=== PATIENT | male | born 1940 | race Hispanic/Latino ===

== ENCOUNTER 2020-06-02 21:39 | Emergency (ER) | payer MEDICARE ==
[~2020-06-02] VITALS: Ht 180.3 cm; Wt 96.6 kg
[~2020-06-02 21:39] MED LIST: DOXYCYCLINE HY100 MG PO; GLIMEPIRIDE2 MG PO; LISINOPRIL2.5 MG PO; PRAVASTATIN SOD20 MG PO; PRAVASTATIN SOD40 MG PO; TRIAMTERENE-HCTZ1 EA PO
[2020-06-02] MEDS ORDERED: IBUPROFEN 600 MG TAB PO STA (21:57)
[2020-06-02] MEDS ORDERED: CEFTRIAXONE SOD 1 GM/50 ML BAG IV ONE (22:00)
[2020-06-02] MEDS ORDERED: SODIUM CHLORIDE 0.9% 1000ML 1,000 ML IV ONE (22:00)
[2020-06-02] MEDS ORDERED: CEFTRIAXONE SOD 1 GM in SODIUM CHLORIDE 0.9% 50ML 50 ML IV ONE (22:15)
[2020-06-02 22:21] LABS: BASOPHILS % 0.2 % (0.0-1.0); HEMATOCRIT 46.4 % (38.2-49.6); HEMOGLOBIN 15.9 g/dL (14.0-18.0); LYMPHOCYTES # (AUTO) 0.8 (1.0-3.2); LYMPHOCYTES % 13.2 % (18.0-39.1); MEAN CORPUSCULAR HEMOGLOBIN 29.4 pg (28-32); MEAN CORPUSCULAR HGB CONC 34.3 g/dL (31-35); MEAN CORPUSCULAR VOLUME 85.9 fL (81-99); MONOCYTES # (AUTO) 0.3 (0.2-0.8); MONOCYTES % 4.9 % (4.4-11.3); NEUTROPHILS # (AUTO) 4.8 (2.1-6.9); NEUTROPHILS % 81.4 % (38.7-80.0); PLATELET COUNT 158 x10e3/uL (140-360)
[2020-06-02 22:38] LABS: ALBUMIN 2.7 g/dL (3.5-5.0); ALBUMIN/GLOBULIN RATIO 0.6 (0.8-2.0); CREATININE, SERUM 1.9 mg/dL (0.72-1.25)
[2020-06-02 22:45] LABS: CREATINE KINASE MB 1.3 ng/mL (0-5.0)
== END 2020-06-03 01:36 | disposition home or self-care (01) ==
LOC: ER 21:45
DX: U07.1 COVID-19 (principal); R50.9 Fever, unspecified; R05 Cough; E11.65 Type 2 diabetes mellitus with hyperglycemia
CPT/HCPCS: 36415; 71045; 80053; 82550; 82553; 83605; 84484; 85025; 87040; 93005; 99284; J0696; J7030; U0002

== ENCOUNTER 2021-11-18 15:50 | Emergency (ER) | payer MEDICARE, OTHER ==
[~2021-11-18] VITALS: Ht 180.3 cm; Wt 96.6 kg
[2021-11-18 16:39] LABS: BASOPHILS % 0.2 % (0.0-1.0); EOSINOPHILS % 0.1 % (0.0-6.0); HEMATOCRIT 46.8 % (38.2-49.6); HEMOGLOBIN 15.5 g/dL (14.0-18.0); LYMPHOCYTES # (AUTO) 0.8 (1.0-3.2); LYMPHOCYTES % 6.3 % (18.0-39.1); MEAN CORPUSCULAR HEMOGLOBIN 29.9 pg (28-32); MEAN CORPUSCULAR HGB CONC 33.1 g/dL (31-35); MEAN CORPUSCULAR VOLUME 90.3 fL (81-99); MONOCYTES # (AUTO) 0.8 (0.2-0.8); MONOCYTES % 6.9 % (4.4-11.3); NEUTROPHILS # (AUTO) 10.4 (2.1-6.9); NEUTROPHILS % 86.2 % (38.7-80.0); PLATELET COUNT 205 x10e3/uL (140-360); RED BLOOD COUNT 5.18 x10e6/uL (4.3-5.7); RED CELL DISTRIBUTION WIDTH 14.5 % (11.7-14.4)
[2021-11-18 17:00] LABS: ALBUMIN 3.1 g/dL (3.5-5.0); ALBUMIN/GLOBULIN RATIO 0.6 (0.8-2.0); ANION GAP 20.4 mmol/L (8-16); CALCIUM 8.7 mg/dL (8.4-10.2); CREATININE, SERUM 1.35 mg/dL (0.72-1.25); POTASSIUM 3.4 mmol/L (3.5-5.1)
[2021-11-18 17:07] LABS: CREATINE KINASE MB 2.2 ng/mL (0-5.0)
[2021-11-18 18:42] LABS: CLARITY,URINE SL CLOUDY (CLEAR); COLOR,URINE YELLOW (YELLOW); LEUKOCYTE ESTERASE ,URINE NEGATIVE (NEGATIVE); NITRITE,URINE NEGATIVE (NEGATIVE); PROTEIN,URINE DIPSTICK >=300 (NEGATIVE)
[2021-11-18 18:43] LABS: KETONES,URINE TRACE (NEGATIVE); URINE UROBILINOGEN 0.2 mg/dL (0.2 - 1)
[2021-11-18 18:45] LABS: WBC,URINE (MAN) 0-5 /HPF (0-5)
[2021-11-18 18:46] LABS: AMORPHOUS SEDIMENT,URINE FEW (FEW); BACTERIA,URINE FEW /HPF; EPITHELIAL CELLS,URINE RARE /LPF
[2021-11-18] MEDS ORDERED: BACTRIM DS TAB1 EACH PO (19:44)
[2021-11-18] MEDS ORDERED: PAXLOVID 150-11 EACH PO (19:44)
[2021-11-18 20:23] VITALS: BP 119/72
== END 2021-11-18 20:26 | disposition home or self-care (01) ==
LOC: ER 15:56
DX: S80.01XA Contusion of right knee, initial encounter (principal); W01.0XXA Fall on same level from slipping, tripping and stumbling without subsequent striking against object, initial encounter; Y93.01 Activity, walking, marching and hiking; Y92.89 Other specified places as the place of occurrence of the external cause; U07.1 COVID-19; E11.649 Type 2 diabetes mellitus with hypoglycemia without coma; E78.5 Hyperlipidemia, unspecified; R94.31 Abnormal electrocardiogram [ECG] [EKG]; Z96.653 Presence of artificial knee joint, bilateral
CPT/HCPCS: 36415; 71045; 73502; 73562; 73700; 80053; 81001; 82550; 82553; 83605; 84484; 85025; 87040; 87086; 93005; 99284; U0002

== ENCOUNTER 2024-08-21 15:19 | Inpatient (IN) | payer MEDICARE ==
[~2024-08-21] VITALS: Ht 165.1 cm; Wt 81.6 kg
[~2024-08-21 15:19] MED LIST changes: +BACTRIM DS TAB1 EACH PO; +PAXLOVID 150-11 EACH PO
[2024-08-21 15:45] VITALS: TEMP 99.1
[2024-08-21 15:54] LABS: BASOPHILS % 0.4 % (0.0-1.0); EOSINOPHILS % 0.3 % (0.0-6.0); HEMOGLOBIN 9.5 g/dL (14.0-18.0); LYMPHOCYTES # (AUTO) 1.4 (1.0-3.2); LYMPHOCYTES % 14.2 % (18.0-39.1); MEAN CORPUSCULAR HEMOGLOBIN 24.7 pg (28-32); MEAN CORPUSCULAR HGB CONC 30.6 g/dL (31-35); MEAN CORPUSCULAR VOLUME 80.7 fL (81-99); MONOCYTES # (AUTO) 0.5 (0.2-0.8); MONOCYTES % 5.3 % (4.4-11.3); NEUTROPHILS # (AUTO) 7.6 (2.1-6.9); NEUTROPHILS % 79.4 % (38.7-80.0); PLATELET COUNT 372 x10e3/uL (140-360); RED BLOOD COUNT 3.84 x10e6/uL (4.3-5.7); RED CELL DISTRIBUTION WIDTH 15.9 % (11.7-14.4); WHITE BLOOD COUNT 9.57 x10e3/uL (4.8-10.8)
[2024-08-21] MEDS: SODIUM CHLORIDE 0.9% 1000ML 1,000 ML IV STA (16:05)
[2024-08-21 16:19] LABS: ALBUMIN 2.6 g/dL (3.5-5.0); ALBUMIN/GLOBULIN RATIO 0.6 (0.8-2.0); ALKALINE PHOSPHATASE 89 IU/L (40-150); ANION GAP 14.8 mmol/L (8-16); BILIRUBIN,TOTAL 0.2 mg/dL (0.2-1.2); BLOOD UREA NITROGEN 24 mg/dL (7-26); BUN/CREATININE RATIO 15 (6-25); CALCIUM 8.3 mg/dL (8.4-10.2); CARBON DIOXIDE 21 mmol/L (22-29); CHLORIDE 103 mmol/L (98-107); CREATININE, SERUM 1.58 mg/dL (0.72-1.25); EST GLOMERULAR FILTRATION RATE 43 ML/MIN (>=60); GLUCOSE 226 mg/dL (74-118); POTASSIUM 3.8 mmol/L (3.5-5.1); SODIUM 135 mmol/L (136-145); TOTAL PROTEIN 6.9 g/dL (6.5-8.1)
[2024-08-21 16:20] LABS: ALANINE AMINOTRANSFERASE < 6 IU/L (0-55)
[2024-08-21 18:29] VITALS: PULSE 89; RESP 12
[2024-08-21] MEDS ORDERED: DEXTROSE 50% SYRINGE 50 ML IV PRN (18:45)
[2024-08-21] MEDS: SODIUM CHLORIDE 0.9% 1000ML 1,000 ML IV SCH (19:03)
[2024-08-21 20:00] VITALS: BP 132/85; PULSE 90; RESP 18; TEMP 98; O2SAT 100
[2024-08-21 20:30] VITALS: BP 132/85; PULSE 90; RESP 18; TEMP 98; O2SAT 100
[2024-08-21] MEDS: INSULIN REGULAR, HUMAN 100 UNIT/1 ML SQ SCH (21:00)
[2024-08-21] MEDS ORDERED: LISINOPRIL5 MG PO (23:13)
[2024-08-21] MEDS ORDERED: TRIJARDY XR 5-1 EACH (23:13)
[2024-08-22] VITALS (9 sets, daily range): BP systolic 119–176; BP diastolic 77–97; PULSE 74–110; RESP 18–20; TEMP 96.4–97.6; O2SAT 97–100
[2024-08-22 05:26] LABS: HEMOGLOBIN 9.7 g/dL (14.0-18.0)
[2024-08-22 05:44] LABS: % IRON SATURATION 10 % (15-50); IRON 25 ug/dL (65-175); TOTAL IRON BINDING CAPACITY 258 ug/dL (261-478); TRANSFERRIN 184 mg/dL (174-364)
[2024-08-22 06:55] LABS: CDIFF AG QUIK CHEK NEGATIVE (NEGATIVE); CDIFF TOX QUIK CHEK NEGATIVE (NEGATIVE)
[2024-08-22] MEDS ORDERED: DOCUSATE SODIUM 100 MG CAP PO PRN (13:45)
[2024-08-22] MEDS ORDERED: HYDRALAZINE HCL 20 MG/ML VIAL IV PRN (13:45)
[2024-08-22] MEDS ORDERED: DEXTROSE 50% SYRINGE 50 ML IV PRN (13:45)
[2024-08-22] MEDS ORDERED: SIMETHICONE 80 MG CHEW PO PRN (13:45)
[2024-08-22] MEDS ORDERED: LIDOCAINE 4% PATCH TP PRN (13:45)
[2024-08-22] MEDS ORDERED: DIPHENHYDRAMINE HCL 25 MG CAP PO PRN (13:45)
[2024-08-22] MEDS ORDERED: ALBUTEROL/IPRATROPIUM 3 ML NEB NEB PRN (13:45)
[2024-08-22] MEDS ORDERED: ONDANSETRON HCL INJ 2MG/ML 2ML 2 MG/ML VIAL IV PRN (13:45)
[2024-08-22] MEDS ORDERED: BENZONATATE 100 MG CAP PO PRN (13:45)
[2024-08-22] MEDS ORDERED: POTASSIUM CHLORIDE 20 MEQ TAB CR PO PRN (13:45)
[2024-08-22] MEDS ORDERED: CIPROFLOXACIN 400 MG/D5W 200ML 200 ML IV SCH (14:00)
[2024-08-22] MEDS: METRONIDAZOLE 500MG/NS 100ML 100 ML IV SCH (15:07)
[2024-08-22] MEDS: IRON SUCROSE 100 MG in SODIUM CHLORIDE 0.9% 100 ML IV SCH (15:08)
[2024-08-22] MEDS: LISINOPRIL 10 MG TAB PO SCH (15:08)
[2024-08-22 15:21] LABS: HEMATOCRIT 37.7 % (38.2-49.6); HEMOGLOBIN 11.2 g/dL (14.0-18.0)
[2024-08-22] MEDS ORDERED: CLONIDINE HCL 0.1 MG TAB PO PRN (16:15)
[2024-08-22] MEDS: INSULIN LISPRO 100 UNIT/1 ML 3ML VIAL SQ SCH (16:48)
[2024-08-22] MEDS: ENOXAPARIN SOD INJ 40 MG/0.4 ML SYR SC SCH (16:48)
[2024-08-22] MEDS: CIPROFLOXACIN 400 MG/D5W 200ML 200 ML IV SCH (16:49)
[2024-08-22] MEDS: DEXTROSE 50% SYRINGE 50 ML IV PRN (20:10)
[2024-08-22] MEDS ORDERED: MELATONIN 5 MG TABLET PO PRN (21:00)
[2024-08-22] MEDS: CYANOCOBALAMIN INJ 1,000 MCG/ML VIAL IM STA (23:45)
[2024-08-23] VITALS (8 sets, daily range): BP systolic 118–152; BP diastolic 62–79; PULSE 64–102; RESP 12–22; TEMP 97.7–98.1; O2SAT 92–98
[2024-08-23 05:41] LABS: BASOPHILS % 0.3 % (0.0-1.0); EOSINOPHILS % 0.5 % (0.0-6.0); HEMATOCRIT 33.1 % (38.2-49.6); HEMOGLOBIN 9.7 g/dL (14.0-18.0); LYMPHOCYTES # (AUTO) 1.3 (1.0-3.2); LYMPHOCYTES % 16.7 % (18.0-39.1); MEAN CORPUSCULAR HEMOGLOBIN 24.6 pg (28-32); MEAN CORPUSCULAR HGB CONC 29.3 g/dL (31-35); MEAN CORPUSCULAR VOLUME 83.8 fL (81-99); MONOCYTES # (AUTO) 0.4 (0.2-0.8); MONOCYTES % 5.9 % (4.4-11.3); NEUTROPHILS # (AUTO) 5.7 (2.1-6.9); NEUTROPHILS % 76.3 % (38.7-80.0); PLATELET COUNT 206 x10e3/uL (140-360); RED BLOOD COUNT 3.95 x10e6/uL (4.3-5.7)
[2024-08-23 06:17] LABS: ANION GAP 17.3 mmol/L (8-16); CALCIUM 7.9 mg/dL (8.4-10.2); CREATININE, SERUM 1.07 mg/dL (0.72-1.25); MAGNESIUM 1.8 MG/DL (1.3-2.1); PHOSPHORUS 3.1 MG/DL (2.3-4.7)
[2024-08-23 06:19] LABS: POTASSIUM 3.3 mmol/L (3.5-5.1)
[2024-08-23] MEDS: CYANOCOBALAMIN INJ 1,000 MCG/ML VIAL IM SCH (08:45)
[2024-08-23] MEDS: PEG (High)/E-LYTE SOLN 4,000 ML BTL PO ONE (11:02)
[2024-08-23 11:08] LABS: BILIRUBIN,URINE NEGATIVE (NEGATIVE); CLARITY,URINE CLEAR (CLEAR); COLOR,URINE YELLOW (YELLOW); GLUCOSE, URINE 500 (NEGATIVE); KETONES,URINE NEGATIVE (NEGATIVE); LEUKOCYTE ESTERASE ,URINE TRACE (NEGATIVE); NITRITE,URINE NEGATIVE (NEGATIVE); PH,URINE 5.5 (5 - 7); PROTEIN,URINE DIPSTICK 2+ (NEGATIVE); URINE UROBILINOGEN 0.2 mg/dL (0.2 - 1)
[2024-08-23 11:17] LABS: BACTERIA,URINE FEW /HPF; EPITHELIAL CELLS,URINE FEW /LPF; RBC,URINE 0-5 /HPF (0-5)
[2024-08-23 16:51] LABS: HEMATOCRIT 34.6 % (38.2-49.6); HEMOGLOBIN 10.3 g/dL (14.0-18.0)
[2024-08-23] MEDS: BISACODYL 5 MG TAB EC PO ONE (22:50)
[2024-08-24] VITALS (11 sets, daily range): BP systolic 130–148; BP diastolic 64–89; PULSE 78–102; RESP 12–19; TEMP 97.7–98.3; O2SAT 94–98
[2024-08-24] MEDS: BISACODYL 5 MG TAB EC PO ONE (00:07)
[2024-08-24] MEDS: POTASSIUM CHLORIDE 20 MEQ TAB CR PO STA (01:00)
[2024-08-24 05:30] LABS: BASOPHILS % 0.2 % (0.0-1.0); EOSINOPHILS % 0.1 % (0.0-6.0); HEMATOCRIT 32.7 % (38.2-49.6); HEMOGLOBIN 9.9 g/dL (14.0-18.0); LYMPHOCYTES # (AUTO) 0.9 (1.0-3.2); LYMPHOCYTES % 10.2 % (18.0-39.1); MEAN CORPUSCULAR HEMOGLOBIN 24.6 pg (28-32); MEAN CORPUSCULAR HGB CONC 30.3 g/dL (31-35); MEAN CORPUSCULAR VOLUME 81.1 fL (81-99); MONOCYTES # (AUTO) 0.4 (0.2-0.8); MONOCYTES % 5.1 % (4.4-11.3); NEUTROPHILS # (AUTO) 7.3 (2.1-6.9); NEUTROPHILS % 83.8 % (38.7-80.0); PLATELET COUNT 404 x10e3/uL (140-360); RED BLOOD COUNT 4.03 x10e6/uL (4.3-5.7)
[2024-08-24 06:13] LABS: ALANINE AMINOTRANSFERASE < 6 IU/L (0-55); ALBUMIN 2.5 g/dL (3.5-5.0); ALBUMIN/GLOBULIN RATIO 0.6 (0.8-2.0); ALKALINE PHOSPHATASE 85 IU/L (40-150); ANION GAP 15.7 mmol/L (8-16); BILIRUBIN,TOTAL 0.2 mg/dL (0.2-1.2); BLOOD UREA NITROGEN 9 mg/dL (7-26); BUN/CREATININE RATIO 8 (6-25); CALCIUM 8.3 mg/dL (8.4-10.2); CARBON DIOXIDE 19 mmol/L (22-29); CHLORIDE 107 mmol/L (98-107); CREATININE, SERUM 1.19 mg/dL (0.72-1.25); EST GLOMERULAR FILTRATION RATE 60 ML/MIN (>=60); GLUCOSE 148 mg/dL (74-118); POTASSIUM 3.7 mmol/L (3.5-5.1); SODIUM 138 mmol/L (136-145); TOTAL PROTEIN 6.9 g/dL (6.5-8.1)
[2024-08-24] MEDS ORDERED: POTASSIUM CHLORIDE 20 MEQ TAB CR PO ONE (08:30)
[2024-08-24] MEDS: METOPROLOL TARTRATE 25 MG TAB PO SCH (09:00)
[2024-08-24] MEDS: POTASSIUM CHLORIDE 20MEQ/100ML 200 ML IV ONE (11:59)
[2024-08-24] MEDS ORDERED: PROPOFOL IV EMULSION 50 ML IV ONE (19:05)
[2024-08-24] MEDS ORDERED: PROPOFOL IV EMULSION 10 MG/ML 20 ML VIAL ONE ×2 (19:15→19:45)
[2024-08-24] MEDS ORDERED: GLUCAGON FOR INJ 1 MG VIAL ONE (19:28)
[2024-08-24] MEDS ORDERED: PHENYLEPHRINE HCL 1% 10 MG/ML VIAL ONE (19:49)
[2024-08-25] VITALS (9 sets, daily range): BP systolic 112–128; BP diastolic 49–73; PULSE 70–105; RESP 16–20; TEMP 97.4–98.6; O2SAT 95–100
[2024-08-25 06:06] LABS: HEMATOCRIT 29.9 % (38.2-49.6); HEMOGLOBIN 8.8 g/dL (14.0-18.0)
[2024-08-25 06:23] LABS: ANION GAP 12.2 mmol/L (8-16); CALCIUM 7.8 mg/dL (8.4-10.2); CREATININE, SERUM 1.29 mg/dL (0.72-1.25); POTASSIUM 4.2 mmol/L (3.5-5.1)
[2024-08-25] MEDS ORDERED: IOPAMIDOL 370 MG/ML 100 ML INFUS..BTL INJ ONE (07:09)
[2024-08-26 03:33] VITALS: BP 154/78; PULSE 88; RESP 18; TEMP 98; O2SAT 100
[2024-08-26 06:15] LABS: HEMATOCRIT 31.8 % (38.2-49.6); HEMOGLOBIN 9.2 g/dL (14.0-18.0)
[2024-08-26 06:27] VITALS: PULSE 75; RESP 22; O2SAT 95
[2024-08-26 06:54] LABS: ANION GAP 11.2 mmol/L (8-16); CALCIUM 7.9 mg/dL (8.4-10.2); CREATININE, SERUM 1.11 mg/dL (0.72-1.25); POTASSIUM 4.2 mmol/L (3.5-5.1)
[2024-08-26 08:03] VITALS: BP 132/74; PULSE 85; RESP 18; TEMP 97.5; O2SAT 95
[2024-08-26] MEDS ORDERED: IOPAMIDOL 370 MG/ML 100 ML INFUS..BTL INJ ONE (10:35)
[2024-08-26 12:33] VITALS: BP 150/73; PULSE 69; RESP 18; TEMP 97; O2SAT 99
[2024-08-26 16:19] VITALS: BP 148/85; PULSE 86; RESP 18; TEMP 98; O2SAT 97
[2024-08-26 19:40] VITALS: PULSE 83; RESP 20; O2SAT 97
[2024-08-26] MEDS: ACETAMINOPHEN 325 MG TAB PO PRN (21:19)
[2024-08-27] VITALS (7 sets, daily range): BP systolic 112–160; BP diastolic 57–83; PULSE 78–103; RESP 18–20; TEMP 97.7–98.6; O2SAT 95–99
[2024-08-27] MEDS ORDERED: LOPRESSOR25 MG PO (14:00)
[2024-08-27] MEDS ORDERED: LISINOPRIL10 MG PO (14:00)
== END 2024-08-27 18:57 | disposition home or self-care (01) | DRG 374 ==
LOC: ER 15:58 → ERHOLD 18:38 → MED/SURG2 20:10
PROVIDERS: ADMIT Internal Medicine; ATTEND Internal Medicine
PROC: 0DBB8ZX Excision of Ileum, Via Natural or Artificial Opening Endoscopic, Diagnostic (ICD-10-PCS; 2024-08-24)
PROC: 0DBP8ZX Excision of Rectum, Via Natural or Artificial Opening Endoscopic, Diagnostic (ICD-10-PCS; 2024-08-24)
PROC: 0DB68ZX Excision of Stomach, Via Natural or Artificial Opening Endoscopic, Diagnostic (ICD-10-PCS; principal; 2024-08-24 18:58)
PROC: 0DB78ZX Excision of Stomach, Pylorus, Via Natural or Artificial Opening Endoscopic, Diagnostic (ICD-10-PCS; 2024-08-24 18:58)
PROC: 0DB98ZX Excision of Duodenum, Via Natural or Artificial Opening Endoscopic, Diagnostic (ICD-10-PCS; 2024-08-24 18:58)
DX: C20 Malignant neoplasm of rectum (principal); E43 Unspecified severe protein-calorie malnutrition; K92.1 Melena; N17.9 Acute kidney failure, unspecified; I47.20 Ventricular tachycardia, unspecified; C78.7 Secondary malignant neoplasm of liver and intrahepatic bile duct; D63.8 Anemia in other chronic diseases classified elsewhere; K20.90 Esophagitis, unspecified without bleeding; K29.70 Gastritis, unspecified, without bleeding; K64.8 Other hemorrhoids; E11.9 Type 2 diabetes mellitus without complications; E86.0 Dehydration; I10 Essential (primary) hypertension; D50.9 Iron deficiency anemia, unspecified; E78.00 Pure hypercholesterolemia, unspecified; D51.9 Vitamin B12 deficiency anemia, unspecified; K52.9 Noninfective gastroenteritis and colitis, unspecified; R15.9 Full incontinence of feces; R63.4 Abnormal weight loss; Z68.30 Body mass index [BMI] 30.0-30.9, adult; T38.3X6A Underdosing of insulin and oral hypoglycemic [antidiabetic] drugs, initial encounter; Z91.120 Patient's intentional underdosing of medication regimen due to financial hardship; Z79.84 Long term (current) use of oral hypoglycemic drugs; Z87.891 Personal history of nicotine dependence; Z83.3 Family history of diabetes mellitus; Z82.49 Family history of ischemic heart disease and other diseases of the circulatory system
CPT/HCPCS: 36415; 43239; 43251; 45380; 71260; 74019; 74177; 80048; 80053; 81001; 82607; 82746; 82948; 83540; 83630; 83690; 83735; 83993; 84100; 84466; 85014; 85018; 85025; 85045; 87045; 87177; 87324; 87449; 88305; 88342; 93005; 93306; 94799; 96372; 99252; 99284; J1610; J1650; J1756; J2371; J2470; J3420; J3480; J7030; J7050; J7799; Q9967